=== PATIENT | female | born 1940 | race Caucasian/White ===

== ENCOUNTER → 2019-06-07 | Outpatient (CLI) | payer MEDICARE | END | disposition home or self-care (01) | LOC: RAH 09:27 | PROVIDERS: ATTEND Internal Medicine Nephrology | DX: Z12.31 Encounter for screening mammogram for malignant neoplasm of breast (principal) | CPT/HCPCS: 77067 ==

== ENCOUNTER 2020-09-26 09:00 | Observation (INO) | payer MEDICARE ==
[~2020-09-26] VITALS: Ht 162.6 cm; Wt 55.6 kg
[2020-09-26 10:51] LABS: APPEARANCE,URINE Clear (CLEAR); BILIRUBIN,URINE Negative (NEGATIVE); COLOR,URINE Yellow (YELLOW); GLUCOSE, URINE (UA) Negative (NEGATIVE); KETONES,URINE Negative (NEGATIVE); LEUKOCYTE ESTERASE ,URINE Moderate (NEGATIVE); NITRATE,URINE Positive (NEGATIVE); OCCULT BLOOD,URINE Negative (NEGATIVE); PH,URINE 5.5 (5.0-8.0); PROTEIN,URINE Negative (NEGATIVE); UROBILINOGEN,URINE 0.2 mg/dL (0.2-1.0)
[2020-09-26 11:35] LABS: BACTERIA,URINE Many /HPF (None Seen); RBC,URINE 0-1 /HPF (0-1); SQUAMOUS EPITHELIAL CELL,UR Few /HPF (0-2)
[2020-09-27 14:01] VITALS: BP 136/55
[2020-09-27] MEDS ORDERED: OMEP20CA12 PO (14:27)
[2020-09-27] MEDS ORDERED: OXYB15TA19 PO (14:27)
[2020-09-27] MEDS ORDERED: LEVO112C4 PO (14:27)
[2020-09-30] VITALS (20 sets, daily range): BP systolic 105–142; BP diastolic 48–82
[2020-09-30] MEDS ORDERED: GENTAMICIN SULFATE 240 MG in SODIUM CHLORIDE 0.9% 100 ML IV SCH (07:00)
[2020-09-30] MEDS ORDERED: LACTATED RINGERS 1000ML 1,000 ML IV ONE (09:54)
[2020-09-30] MEDS: CEFAZOLIN SODIUM 1 GM VIAL ONE ×2 (10:14→13:12)
[2020-09-30] MEDS ORDERED: ACETAMINOPHEN 500 MG TABLET ONE (11:12)
[2020-09-30] MEDS ORDERED: CELECOXIB 200 MG CAP ONE (11:13)
[2020-09-30] MEDS ORDERED: CEFAZOLIN SODIUM 1 GM VIAL ONE (12:01)
[2020-09-30] MEDS ORDERED: TRANEXAMIC ACID 1000MG/10ML ONE ×2 (12:01→16:18)
[2020-09-30] MEDS ORDERED: PROPOFOL 10 MG/ML 20ML VIAL IV ONE (12:20)
[2020-09-30] MEDS ORDERED: ROCURONIUM 10MG/1ML SYR 10 MG/ML ML ONE (12:20)
[2020-09-30] MEDS ORDERED: LIDOCAINE PF 100MG/5ML (2%) SYRINGE 5ML ONE (12:20)
[2020-09-30] MEDS ORDERED: PHENYLEPHRINE HCL 10 MG/ML 1ML VIAL IV ONE (13:28)
[2020-09-30] MEDS ORDERED: ONDANSETRON HCL 4 MG/2 ML VIAL ONE (13:38)
[2020-09-30] MEDS ORDERED: GLYCOPYRROLATE 1 MG/5 ML SYRINGE ONE (13:38)
[2020-09-30] MEDS ORDERED: DEXAMETHASONE SOD PHOSPHATE 10MG/ML 1ML VIAL ONE (13:38)
[2020-09-30] MEDS ORDERED: NEOSTIGMINE 5MG/5ML SYR IV ONE (13:38)
[2020-09-30] MEDS ORDERED: CEFAZOLIN SODIUM 1 GM VIAL IRRIG ONE (14:01)
[2020-09-30] MEDS ORDERED: FENTANYL CITRATE PF 50 MCG/1 ML 2ML VIAL ONE (14:04)
[2020-09-30] MEDS ORDERED: DiphenhydrAMINE HCL 50 MG/ML VIAL IVP PRN (15:45)
[2020-09-30] MEDS ORDERED: POTASSIUM CHLORIDE 10% ELIXIR 20 MEQ/15 ML UDCUP PO PRN (15:45)
[2020-09-30] MEDS: ACETAMINOPHEN 500 MG TABLET PO SCH ×2 (15:45→23:45)
[2020-09-30] MEDS ORDERED: ONDANSETRON HCL 4 MG/2 ML VIAL IVP PRN (15:45)
[2020-09-30] MEDS ORDERED: KCL 20 MEQ ERTAB PO PRN (15:45)
[2020-09-30] MEDS ORDERED: TEMAZEPAM 15 MG CAPSULE PO PRN (15:45)
[2020-09-30] MEDS ORDERED: LIDOCAINE HCL-MPF 1% 2ML VIAL IV PRN (15:45)
[2020-09-30] MEDS: SODIUM CHLORIDE 0.9% 1000ML 1,000 ML IV SCH (15:45)
[2020-09-30] MEDS ORDERED: POTASSIUM CHLORIDE 20MEQ/100ML 100 ML IV PRN (15:45)
[2020-09-30] MEDS ORDERED: FERROUS FUMARATE 324 MG TABLET PO PRN (15:45)
[2020-09-30] MEDS: OXYCODONE HCL 5 MG TAB PO PRN (19:00)
[2020-09-30] MEDS: PREGABALIN 25 MG CAP PO SCH (20:49)
[2020-09-30] MEDS: CEFAZOLIN SODIUM 1 GM VIAL IVP SCH (20:50)
[2020-09-30] MEDS: CELECOXIB 200 MG CAP PO SCH (20:50)
[2020-09-30] MEDS: ASPIRIN 81MG TAB.CHEW PO SCH (20:50)
[2020-09-30] MEDS: NITROFURANTOIN MONOHYD/M-CRYST 100 MG CAPSULE PO SCH (21:00)
[2020-09-30] MEDS: KETOROLAC 15MG/ML VIAL (15MG/ML) IV PRN (21:02)
[2020-10-01] MEDS: CEFAZOLIN SODIUM 1 GM VIAL IVP SCH (04:01)
[2020-10-01] MEDS: OXYCODONE HCL 5 MG TAB PO PRN ×4 (04:02→20:11)
[2020-10-01 04:06] LABS: HEMATOCRIT 29.6 % (36-48); MEAN CORPUSCULAR HEMOGLOBIN 29.9 pg (27.0-33.0); MEAN CORPUSCULAR HGB CONC 32.4 g/dL (32.0-36.0); MEAN CORPUSCULAR VOLUME 92.2 fL (79-99); RED BLOOD CELL COUNT(AUTO) 3.21 MIL/uL (4.00-5.50); RED CELL DISTRIBUTION WIDTH 13.6 % (11.0-15.5); WHITE BLOOD COUNT (AUTO) 9.2 K/uL (4.8-10.8)
[2020-10-01 04:08] VITALS: BP 110/59
[2020-10-01 04:10] LABS: CREATININE 0.7 mg/dL (0.5-1.5); POTASSIUM 3.9 mmol/L (3.5-5.1)
[2020-10-01] MEDS: LEVOTHYROXINE 112 MCG TABLET PO SCH (06:30)
[2020-10-01] MEDS: OXYBUTYNIN 5 MG TAB.SR.24H PO SCH ×2 (06:49→07:54)
[2020-10-01] MEDS: CELECOXIB 200 MG CAP PO SCH ×2 (07:54→20:09)
[2020-10-01] MEDS: ASPIRIN 81MG TAB.CHEW PO SCH ×2 (07:54→20:09)
[2020-10-01] MEDS: ACETAMINOPHEN 500 MG TABLET PO SCH ×3 (07:54→23:45)
[2020-10-01] MEDS: POLYETHYLENE GLYCOL 3350 17 GM POWD.PACK PO SCH (07:54)
[2020-10-01] MEDS: PREGABALIN 25 MG CAP PO SCH ×2 (07:54→20:09)
[2020-10-01] MEDS: PANTOPRAZOLE SODIUM 40 MG TABLET.DR PO SCH (07:54)
[2020-10-01 08:07] VITALS: BP 114/52
[2020-10-01] MEDS: NITROFURANTOIN MONOHYD/M-CRYST 100 MG CAPSULE PO SCH ×2 (09:00→20:13)
[2020-10-01 11:06] VITALS: BP 113/59
[2020-10-01] MEDS: SODIUM CHLORIDE 0.9% 1000ML 1,000 ML IV SCH (11:45)
[2020-10-01] MEDS: KETOROLAC 15MG/ML VIAL (15MG/ML) IV PRN (13:30)
[2020-10-01] MEDS: CALCIUM CARBONATE 500 MG TABLET PO PRN (14:36)
[2020-10-01] MEDS: TRAMADOL HCL 50 MG TABLET PO PRN (15:05)
[2020-10-01 16:25] VITALS: BP 131/63
[2020-10-01 20:15] VITALS: BP 121/52
[2020-10-01 23:50] VITALS: BP 113/52
[2020-10-02] MEDS: CALCIUM CARBONATE 500 MG TABLET PO PRN (02:59)
[2020-10-02] MEDS: OXYCODONE HCL 5 MG TAB PO PRN ×2 (03:01→07:53)
[2020-10-02 04:03] VITALS: BP 133/42
[2020-10-02] MEDS: LEVOTHYROXINE 112 MCG TABLET PO SCH (06:03)
[2020-10-02] MEDS: ACETAMINOPHEN 500 MG TABLET PO SCH ×2 (07:45→15:45)
[2020-10-02] MEDS: ASPIRIN 81MG TAB.CHEW PO SCH (07:52)
[2020-10-02] MEDS: CELECOXIB 200 MG CAP PO SCH (07:52)
[2020-10-02] MEDS: PREGABALIN 25 MG CAP PO SCH (07:53)
[2020-10-02] MEDS: PANTOPRAZOLE SODIUM 40 MG TABLET.DR PO SCH (07:53)
[2020-10-02] MEDS: POLYETHYLENE GLYCOL 3350 17 GM POWD.PACK PO SCH (07:53)
[2020-10-02] MEDS: NITROFURANTOIN MONOHYD/M-CRYST 100 MG CAPSULE PO SCH (07:53)
[2020-10-02] MEDS: OXYBUTYNIN 5 MG TAB.SR.24H PO SCH (07:55)
[2020-10-02 07:59] VITALS: BP 147/53
[2020-10-02 11:16] VITALS: BP 136/59
[2020-10-02] MEDS: TRAMADOL HCL 50 MG TABLET PO PRN (13:04)
[2020-10-02 16:29] VITALS: BP 119/54
[2020-10-02] MEDS: KETOROLAC 15MG/ML VIAL (15MG/ML) IV PRN (17:20)
[2020-10-03] MEDS ORDERED: BISACODYL 10 MG SUPP.RECT RC PRN (15:45)
== END 2020-10-02 18:25 | disposition home or self-care (01) ==
LOC: EDSTATUS 09:00 → DAHIP 09-30 08:24 → 4AH 09-30 17:09
PROVIDERS: ADMIT Orthopaedic Surgery; ATTEND Orthopaedic Surgery
DX: M17.12 Unilateral primary osteoarthritis, left knee (principal); Z20.822 Contact with and (suspected) exposure to COVID-19; E03.9 Hypothyroidism, unspecified; N39.0 Urinary tract infection, site not specified; B96.20 Unspecified Escherichia coli [E. coli] as the cause of diseases classified elsewhere; D64.9 Anemia, unspecified; Z90.49 Acquired absence of other specified parts of digestive tract; Z98.49 Cataract extraction status, unspecified eye; Z79.899 Other long term (current) drug therapy
CPT/HCPCS: 27447; 36415; 80048; 81001; 85027; 87077; 87088; 87186; 87641; 88305; 88311; 96361 ×2; 96365; 96375; 96376 ×2; 97039 ×4; 97116 ×4; 97161; 97530 ×3; A4215; A4216; A4221; A4222; A4223; A4649 ×3; A4663; A4930 ×2; A9272; C1776; G0378 ×48; G8978; G8979; G8980; G8981; G8982; G8983; J0690 ×5; J1100; J1885 ×3; J2001; J2370; J2405; J2704; J2710; J3010; J3490 ×3; J7120 ×2; U0003; J1580

== ENCOUNTER 2020-12-20 11:00 | Observation (INO) | payer MEDICARE ==
[2020-12-19 09:38] LABS: BASOPHILS % (AUTO) 0.5 % (0.0-5.0); EOSINOPHILS % (AUTO) 1.3 % (0.0-8.0); HEMATOCRIT 39.3 % (36-48); MEAN CORPUSCULAR HEMOGLOBIN 29.8 pg (27.0-33.0); MEAN CORPUSCULAR HGB CONC 31.8 g/dL (32.0-36.0); MEAN CORPUSCULAR VOLUME 93.6 fL (79-99); MONOCYTES % (AUTO) 8.4 % (3.0-13.0); NEUTROPHILS % (AUTO) 45.4 % (40.0-77.0); PLATELET COUNT (AUTO) 301 K/uL (130-400); RED CELL DISTRIBUTION WIDTH 13.5 % (11.0-15.5); WHITE BLOOD COUNT (AUTO) 5.5 K/uL (4.8-10.8)
[2020-12-19 09:44] LABS: CREATININE 0.7 mg/dL (0.5-1.5); POTASSIUM 5.1 mmol/L (3.5-5.1)
[2020-12-19 09:48] LABS: APPEARANCE,URINE Clear (CLEAR); BILIRUBIN,URINE Negative (NEGATIVE); COLOR,URINE Dark Yellow (YELLOW); GLUCOSE, URINE (UA) Negative (NEGATIVE); KETONES,URINE Negative (NEGATIVE); LEUKOCYTE ESTERASE ,URINE Large (NEGATIVE); NITRATE,URINE Negative (NEGATIVE); OCCULT BLOOD,URINE Negative (NEGATIVE); PROTEIN,URINE Negative (NEGATIVE); UROBILINOGEN,URINE 0.2 mg/dL (0.2-1.0)
[2020-12-19 09:56] LABS: INR 0.99 (0.85-1.15); PROTHROMBIN TIME 10.8 SEC (9.6-11.6)
[2020-12-19 09:57] LABS: BACTERIA,URINE Rare /HPF (None Seen); RBC,URINE 0-1 /HPF (0-1); SQUAMOUS EPITHELIAL CELL,UR Rare /HPF (0-2)
[~2020-12-20] VITALS: Ht 162.6 cm; Wt 53.7 kg
[~2020-12-20 11:00] MED LIST: LEVO112C4 PO; OXYB15TA19 PO
[2020-12-24 15:11] VITALS: BP 137/63
[2020-12-24] MEDS ORDERED: CELE100 PO (15:29)
[2020-12-24] MEDS ORDERED: OMEP20TA2 PO (15:29)
[2020-12-25] VITALS (23 sets, daily range): BP systolic 123–147; BP diastolic 46–70
[2020-12-25] MEDS ORDERED: LACTATED RINGERS 1000ML 1,000 ML IV ONE (07:07)
[2020-12-25] MEDS ORDERED: CEFAZOLIN SODIUM 1 GM VIAL ONE ×2 (07:08→13:34)
[2020-12-25] MEDS ORDERED: TRANEXAMIC ACID 1000MG/10ML ONE ×2 (07:09→10:43)
[2020-12-25] MEDS: CEFAZOLIN SODIUM 1 GM VIAL IVP ONE ×2 (07:32→08:52)
[2020-12-25] MEDS ORDERED: CEFAZOLIN SODIUM 1 GM VIAL IRRIG ONE (09:22)
[2020-12-25] MEDS ORDERED: TRAMADOL HCL 50 MG TABLET PO PRN (11:00)
[2020-12-25] MEDS ORDERED: POTASSIUM CHLORIDE 20MEQ/100ML 100 ML IV PRN (11:00)
[2020-12-25] MEDS ORDERED: OXYCODONE HCL 5 MG TAB PO PRN (11:00)
[2020-12-25] MEDS ORDERED: FERROUS FUMARATE 324 MG TABLET PO PRN (11:00)
[2020-12-25] MEDS ORDERED: CALCIUM CARB 500MG PO PRN (11:00)
[2020-12-25] MEDS ORDERED: LIDOCAINE HCL-MPF 1% 2ML VIAL IV PRN (11:00)
[2020-12-25] MEDS ORDERED: DiphenhydrAMINE HCL 50 MG/ML VIAL IVP PRN (11:00)
[2020-12-25] MEDS: ACETAMINOPHEN 500 MG TABLET PO SCH ×2 (11:00→15:29)
[2020-12-25] MEDS ORDERED: ONDANSETRON 4MG INJ IVP PRN (11:00)
[2020-12-25] MEDS ORDERED: POTASSIUM CHLORIDE 10% ELIXIR 20 MEQ/15 ML UDCUP PO PRN (11:00)
[2020-12-25] MEDS ORDERED: KCL 20 MEQ ERTAB PO PRN (11:00)
[2020-12-25] MEDS ORDERED: TEMAZEPAM 15 MG CAPSULE PO PRN (11:00)
[2020-12-25] MEDS: 0.9%NACL 1000ML 1,000 ML IV SCH ×2 (13:23→21:00)
[2020-12-25] MEDS: KETOROLAC 15MG/ML VIAL (15MG/ML) IV PRN (13:26)
[2020-12-25] MEDS: CEFAZOLIN SODIUM 1 GM VIAL IVP SCH (15:28)
[2020-12-25] MEDS: OXYCODONE HCL 5 MG TAB PO PRN ×2 (15:30→20:07)
[2020-12-25] MEDS: CELECOXIB 200 MG CAP PO SCH (20:05)
[2020-12-25] MEDS: ASPIRIN 81 MG EC TAB PO SCH (20:05)
[2020-12-25] MEDS: FAMOTIDINE 20MG TAB PO SCH (20:06)
[2020-12-25] MEDS: PREGABALIN 25 MG CAP PO SCH (20:06)
[2020-12-26] MEDS: CEFAZOLIN SODIUM 1 GM VIAL IVP SCH
[2020-12-26 00:02] VITALS: BP 115/55
[2020-12-26] MEDS: 0.9%NACL 1000ML 1,000 ML IV SCH ×2 (01:10→08:10)
[2020-12-26] MEDS: OXYCODONE HCL 5 MG TAB PO PRN ×3 (03:35→20:14)
[2020-12-26 04:23] VITALS: BP 100/49
[2020-12-26 05:30] LABS: HEMATOCRIT 29.5 % (36-48); MEAN CORPUSCULAR HGB CONC 31.9 g/dL (32.0-36.0); RED BLOOD CELL COUNT(AUTO) 3.24 MIL/uL (4.00-5.50); RED CELL DISTRIBUTION WIDTH 13.4 % (11.0-15.5)
[2020-12-26 05:41] LABS: CREATININE 0.8 mg/dL (0.5-1.5); POTASSIUM 3.6 mmol/L (3.5-5.1)
[2020-12-26] MEDS: ASPIRIN 81 MG EC TAB PO SCH ×2 (07:43→20:14)
[2020-12-26] MEDS: FAMOTIDINE 20MG TAB PO SCH (07:44)
[2020-12-26] MEDS: CELECOXIB 200 MG CAP PO SCH (07:44)
[2020-12-26] MEDS: PREGABALIN 25 MG CAP PO SCH (07:44)
[2020-12-26] MEDS: KETOROLAC 15MG/ML VIAL (15MG/ML) IV PRN ×2 (07:45→16:32)
[2020-12-26 08:00] VITALS: BP 121/69
[2020-12-26] MEDS ORDERED: LEVOTHYROXINE 112 MCG TABLET PO SCH (08:30)
[2020-12-26] MEDS ORDERED: POLYETHYLENE GLYCOL 3350 17 GM POWD.PACK PO SCH (09:00)
[2020-12-26] MEDS ORDERED: OXYBUTYNIN 5 MG TAB.SR.24H PO SCH (09:00)
[2020-12-26] MEDS: ACETAMINOPHEN 500 MG TABLET PO SCH ×3 (10:53→17:45)
[2020-12-26 16:00] VITALS: BP 154/85
[2020-12-26 19:00] VITALS: BP 130/56
[2020-12-27] MEDS ORDERED: LEVOTHYROXINE 112 MCG TABLET PO SCH (07:30)
[2020-12-28] MEDS ORDERED: BISACODYL 10 MG SUPP.RECT RC PRN (11:00)
== END 2020-12-26 21:20 ==
LOC: EDSTATUS 11:00 → DAHIP 12-25 06:19 → 4AH 12-25 12:43
PROVIDERS: ADMIT Orthopaedic Surgery; ATTEND Orthopaedic Surgery
DX: M17.11 Unilateral primary osteoarthritis, right knee (principal); Z20.822 Contact with and (suspected) exposure to COVID-19; M19.90 Unspecified osteoarthritis, unspecified site; E03.9 Hypothyroidism, unspecified; K80.80 Other cholelithiasis without obstruction; E83.51 Hypocalcemia; D64.9 Anemia, unspecified; H04.129 Dry eye syndrome of unspecified lacrimal gland; Z79.82 Long term (current) use of aspirin; Z96.652 Presence of left artificial knee joint; Z79.899 Other long term (current) drug therapy; Z98.890 Other specified postprocedural states
CPT/HCPCS: 27447; 36415 ×2; 71045; 80048 ×2; 81001; 85025; 85027; 85610; 87088; 87635; 87641; 88305; 93005; 96361 ×2; 96374; 96375 ×2; 96376; 97039 ×3; 97116 ×2; 97161; 97530 ×2; A4213; A4215; A4216; A4221; A4222; A4223 ×2; A4649 ×3; A4663; A4930 ×2; A5120; A9272; C1776; G0378 ×31; G8979; G8980; G8981; G8982; G8983; J0690 ×5; J1885 ×3; J2405 ×2; J3490 ×2; J7030 ×3; J7120

== ENCOUNTER → 2021-07-14 | Outpatient (CLI) | payer MEDICARE ==
[~2021-07-14] MED LIST changes: +CELE100 PO; +OMEP20TA2 PO
== END | disposition home or self-care (01) ==
LOC: RAH 11:07
PROVIDERS: ATTEND Physical Medicine & Rehabilitation
DX: M47.22 Other spondylosis with radiculopathy, cervical region (principal); M43.12 Spondylolisthesis, cervical region; M43.5X Other recurrent vertebral dislocation; M51.34 Other intervertebral disc degeneration, thoracic region; M41.86 Other forms of scoliosis, lumbar region; M51.36 Other intervertebral disc degeneration, lumbar region
CPT/HCPCS: 72141

== ENCOUNTER 2022-10-06 05:33 | Observation (INO) | payer MEDICARE ==
[2022-10-01 11:53] LABS: APPEARANCE,URINE CLEAR (CLEAR); BILIRUBIN,URINE NEGATIVE (NEGATIVE); COLOR,URINE LIGHT-YELLOW (YELLOW); GLUCOSE, URINE (UA) NEGATIVE (NEGATIVE); KETONES,URINE NEGATIVE (NEGATIVE); LEUKOCYTE ESTERASE ,URINE 75 Leu/uL (NEGATIVE); NITRATE,URINE 2+ (NEGATIVE); OCCULT BLOOD,URINE NEGATIVE (NEGATIVE); PH,URINE 5.5 (5.0-8.0); PROTEIN,URINE NEGATIVE (NEGATIVE); UROBILINOGEN,URINE 0.2 mg/dL (0.2-1.0)
[2022-10-01 11:57] LABS: BASOPHILS % (AUTO) 0.4 % (0.0-5.0); EOSINOPHILS % (AUTO) 0.9 % (0.0-8.0); HEMATOCRIT 38.7 % (36-48); MEAN CORPUSCULAR HEMOGLOBIN 31.2 pg (27.0-33.0); MEAN CORPUSCULAR VOLUME 97.2 fL (79-99); MONOCYTES % (AUTO) 7.6 % (3.0-13.0); NEUTROPHILS % (AUTO) 63.4 % (40.0-77.0); PLATELET COUNT (AUTO) 288 K/uL (130-400); RED BLOOD CELL COUNT(AUTO) 3.98 MIL/uL (4.00-5.50); RED CELL DISTRIBUTION WIDTH 12.7 % (11.0-15.5); WHITE BLOOD COUNT (AUTO) 5.4 K/uL (4.8-10.8)
[2022-10-01 12:03] LABS: BACTERIA,URINE FEW /HPF (None Seen); MUCUS,URINE RARE LPF (None Seen); RBC,URINE 0-1 /HPF (0-1)
[2022-10-01 12:08] LABS: INR 0.94 (0.85-1.15); PROTHROMBIN TIME 10.3 SEC (9.6-11.6)
[2022-10-01 12:09] LABS: PARTIAL THROMBOPLASTIN TIME 28.6 SEC (26.3-35.5)
[2022-10-01 12:46] VITALS: BP 147/72
[2022-10-06] VITALS (25 sets, daily range): BP systolic 130–167; BP diastolic 44–86
[~2022-10-06] VITALS: Ht 160 cm; Wt 53.3 kg
[~2022-10-06 05:33] MED LIST changes: +AREDS PO; +BIOTIN PO; +CALC-190 PO; -CELE100 PO; +FLAX1CAP7 PO; +LEVO100C4 PO; +LIFI1DRO OU; +LUTE40CA PO; +MVIT PO; +OMEG-96 PO; -OMEP20TA2 PO; +VITAMIN B12 PO
[2022-10-06] MEDS ORDERED: CEFAZOLIN SODIUM 2 GM VIAL ONE (06:08)
[2022-10-06] MEDS ORDERED: LACTATED RINGERS 1000ML 1,000 ML IV ONE (06:08)
[2022-10-06 06:52] LABS: CREATININE 0.7 mg/dL (0.5-1.5); POTASSIUM 4.9 mmol/L (3.5-5.1)
[2022-10-06] MEDS ORDERED: FENTANYL CITRATE PF 50 MCG/1 ML 2ML VIAL ONE ×2 (06:57→08:42)
[2022-10-06] MEDS ORDERED: MIDAZOLAM HCL 1 MG/ML 2ML VIAL ONE (06:57)
[2022-10-06] MEDS ORDERED: PROPOFOL 10 MG/ML 20ML VIAL IV ONE (06:57)
[2022-10-06] MEDS ORDERED: ROCURONIUM 10MG/1ML SYR 10 MG/ML ML ONE (07:00)
[2022-10-06] MEDS ORDERED: CEFAZOLIN SODIUM 2 GM VIAL IVPB ONE (07:10)
[2022-10-06] MEDS ORDERED: ONDANSETRON 4MG INJ ONE (07:41)
[2022-10-06] MEDS ORDERED: DEXAMETHASONE SOD PHOSPHATE 10MG/ML 1ML VIAL ONE (07:41)
[2022-10-06] MEDS ORDERED: NEOSTIGMINE 5MG/5ML SYR IV ONE (08:41)
[2022-10-06] MEDS ORDERED: GLYCOPYRROLATE 1 MG/5 ML SYRINGE ONE (08:41)
[2022-10-06] MEDS ORDERED: GLYCOPYRROLATE 0.2 MG/ML 5 ML VIAL ONE (09:19)
[2022-10-06] MEDS ORDERED: MEPERIDINE-PF 25 MG/ML SYG ONE (09:25)
[2022-10-06] MEDS ORDERED: BISACODYL 10 MG SUPP.RECT RC PRN (11:00)
[2022-10-06] MEDS ORDERED: PROMETHAZINE HCL 25 MG/ML 1ML AMPULE IM PRN ×2 (11:00)
[2022-10-06] MEDS ORDERED: IBUPROFEN 600 MG TABLET PO PRN (11:00)
[2022-10-06] MEDS ORDERED: MEPERIDINE-PF 75 MG/ML SYG IM PRN (11:00)
[2022-10-06] MEDS ORDERED: ACETAMINOPHEN WITH CODEINE 1 TAB TAB PO PRN (11:00)
[2022-10-06] MEDS: DEXTROSE 5 %-0.45 % NACL 1,000 ML IV PRN ×2 (11:35→17:06)
[2022-10-06] MEDS: ONDANSETRON 4MG INJ IVP PRN (18:57)
[2022-10-06] MEDS: NITROFURANTOIN MONOHYD/M-CRYST 100 MG CAPSULE PO SCH (21:12)
[2022-10-06] MEDS: SIMETHICONE 80 MG TAB.CHEW PO PRN (21:12)
[2022-10-06] MEDS: DOCUSATE SODIUM 100 MG CAP PO PRN (21:12)
[2022-10-07] MEDS: DEXTROSE 5 %-0.45 % NACL 1,000 ML IV PRN (02:51)
[2022-10-07] MEDS: ONDANSETRON 4MG INJ IVP PRN (02:51)
[2022-10-07 03:26] VITALS: BP 152/65
[2022-10-07 06:03] LABS: HEMATOCRIT 34.5 % (36-48); MEAN CORPUSCULAR HEMOGLOBIN 31.5 pg (27.0-33.0); MEAN CORPUSCULAR HGB CONC 32.2 g/dL (32.0-36.0); RED BLOOD CELL COUNT(AUTO) 3.52 MIL/uL (4.00-5.50); RED CELL DISTRIBUTION WIDTH 12.8 % (11.0-15.5); WHITE BLOOD COUNT (AUTO) 10.6 K/uL (4.8-10.8)
[2022-10-07 07:52] VITALS: BP 142/57
[2022-10-07] MEDS ORDERED: ACETAMINOPHEN WITH CODEINE 1 TAB TAB PO PRN (08:00)
[2022-10-07] MEDS ORDERED: HYDROCODONE/ACETAMINOPHEN 5/325 MG TAB PO PRN (08:00)
[2022-10-07] MEDS: SIMETHICONE 80 MG TAB.CHEW PO PRN (08:12)
[2022-10-07] MEDS: NITROFURANTOIN MONOHYD/M-CRYST 100 MG CAPSULE PO SCH (08:12)
[2022-10-07] MEDS: DOCUSATE SODIUM 100 MG CAP PO PRN (08:12)
[2022-10-07] MEDS: IBUPROFEN 800 MG TAB PO PRN ×2 (08:13→20:39)
[2022-10-07] MEDS ORDERED: PHARMACY COMMUNICATION MISC SCH (09:00)
[2022-10-07] MEDS ORDERED: LEVOFLOXACIN 500 MG TABLET PO SCH (10:00)
[2022-10-07 12:00] VITALS: BP 142/61
[2022-10-07 16:00] VITALS: BP 147/61
[2022-10-07 19:15] VITALS: BP 153/69
[2022-10-07 22:10] VITALS: BP 140/64
[2022-10-08 03:24] VITALS: BP 146/67
[2022-10-08 07:10] VITALS: BP 148/61
[2022-10-08] MEDS: IBUPROFEN 800 MG TAB PO PRN (08:13)
[2022-10-08] MEDS: DOCUSATE SODIUM 100 MG CAP PO PRN (08:14)
[2022-10-08 12:18] VITALS: BP 140/66
[2022-10-08] MEDS ORDERED: ACET-2079 PO (12:43)
[2022-10-08] MEDS ORDERED: [UNRECOGNIZED DRUG - OTHER] (12:48)
[2022-10-08] MEDS ORDERED: LEVOFLOXACIN 500 MG TABLET PO SCH (21:00)
== END 2022-10-08 13:35 | disposition home or self-care (01) ==
LOC: DAH 05:33 → WSH 05:34 → DAH 05:34
PROVIDERS: ADMIT Obstetrics & Gynecology; ATTEND Obstetrics & Gynecology
DX: N81.10 Cystocele, unspecified (principal); Z20.822 Contact with and (suspected) exposure to COVID-19; N39.3 Stress incontinence (female) (male); K46.9 Unspecified abdominal hernia without obstruction or gangrene; E03.9 Hypothyroidism, unspecified; M19.90 Unspecified osteoarthritis, unspecified site; M81.0 Age-related osteoporosis without current pathological fracture; Z79.899 Other long term (current) drug therapy; Z98.890 Other specified postprocedural states; Z98.51 Tubal ligation status
CPT/HCPCS: 85025; 85610; 85730; 86850 ×2; 86900 ×2; 86901 ×2; 87077; 87088; 87186; 87426; 81001; 36415 ×3; 58263; 57288; 57240; 96374; 96372; 80048; 93005; 96376; 85027; A6260; G0378 ×53; G0379; A4663; A4351; A4606; A4344; J7120; J3010 ×2; J3490 ×2; J1100; J2710; J2550; J2250; J2704; J2405 ×3; J2175 ×2; J0690 ×2; C1771; A4649; A4215; A4223; A4222; A4221; A4600; A4510; L0625

== ENCOUNTER → 2023-08-19 | Outpatient (CLI) | payer MEDICARE ==
[~2023-08-19] MED LIST changes: +ACET-2079 PO; +[UNRECOGNIZED DRUG - OTHER]
== END | disposition home or self-care (01) ==
LOC: RAH 07:29
PROVIDERS: ATTEND Student in an Organized Health Care Education/Training Program
DX: S46.022A Laceration of muscle(s) and tendon(s) of the rotator cuff of left shoulder, initial encounter (principal); M19.012 Primary osteoarthritis, left shoulder; X58.XXXA Exposure to other specified factors, initial encounter; Y93.89 Activity, other specified; Y92.89 Other specified places as the place of occurrence of the external cause; Y99.8 Other external cause status
CPT/HCPCS: 73221